=== PATIENT | female | born 1980 | race Caucasian/White ===

== ENCOUNTER → 2017-04-30 | Outpatient (CLI) | payer BC ==
--- NOTE | 2017-05-02 10:34 | RADIOLOGY REPORT PS360 ---
DIG MAMM-DX UNI A/VW-RT W/CAD, US BREAST-RT COMPLETE W/AXILLA Ordering Physician: Natalio Camarena MD Patient Age: 36 years Female COMPARISON: April 17, 2017 screening mammogram. September 2013 and April 2012 bilateral mammogram INDICATION: Additional evaluation of density questioned at the upper outer quadrant right breast on recent screening mammogram 04/17/2017. DIGITAL RIGHT MAMMOGRAM WITH SPOT VIEWS... TECHNIQUE: MLO and CC and axillary cc views right breast along with MLO and cc spot view performed. The area of questioned density at the right breast seems to compress out with no persistent density of significant concern most likely asymmetric glandular tissue but does warrant follow-up ========= RIGHT BREAST ULTRASOUND including axilla survey... Ultrasound entire right breast with the additional axillary survey reveals no suspicious findings. No solid mass. No appreciable architectural distortion. Attention is directed towards upper-outer quadrant right breast. . There is a small cyst seen at the 7 o'clock position mid zone right breast. This measures up to 3.9 mm maximally. Unimpressive. Axillary survey. Benign-appearing lymph nodes right axilla. Focal Generous 1.8 cm length node at right axilla is most evident. Small lymph nodes also seen. These appear to be benign lymph nodes and can be followed safely. IMPRESSION/SUMMARY:... Right breast workup 1. Mammography Spot views show no areas of significant concern. Minimal asymmetric glandular tissue upper-outer quadrant right breast, dissipate on the on the 90 degree view. 2. Today's ultrasound shows no areas of significant concern either . Only tiny less than 4 mm benign cyst 7:00 noted 3. Recommend follow-up right mammogram in 6-8 months to ensure stability BI-RADS CATEGORY: 3_Probably Benign-Short Term F/U RECOMMENDED FOLLOWUP: 6M -8MONTH FOLLOW-UP (A letter has been sent to the patient regarding results of the study.)
== END ==
LOC: RAD 12:57
DX: R92.8 Other abnormal and inconclusive findings on diagnostic imaging of breast (principal)
CPT/HCPCS: G0206-RT